=== PATIENT | male | born 1955 | race Caucasian/White ===

== ENCOUNTER 2018-12-27 07:17 | Emergency (ER) | payer SELFPAY ==
--- NOTE | 2018-12-27 08:34 | ER Document Report ---
ED General - General Chief Complaint: Chest Pain Stated Complaint: DIFFICULTY BREATHING Time Seen by Provider: 12/27/18 08:27 TRAVEL OUTSIDE OF THE [place] IN LAST 30 DAYS: No - HPI Patient complains to provider of: RUQ pain increased with inspiration Notes: She presents with approximate 1 day history of increasing right upper quadrant/pain 8/10 sharp in nature made worse with deep inspiration. Nothing makes the pain better. Patient has never felt like this before. Patient denies any history of abdominal surgery. Patient denies fever chills. Patient has not been eating much secondary to the pain. Patient denies any history of cardiac disease. Pain is located in the delineations between his thorax and his abdomen. His pain radiates to his right lower quadrant as well - Related Data Allergies/Adverse Reactions: No Known Allergies Allergy (Verified 12/27/18 07:21) Past Medical History - Social History Smoking Status: Current Every Day Smoker Family History: Reviewed & Not Pertinent - Immunizations Immunizations up to date: Yes Hx Diphtheria, Pertussis, Tetanus Vaccination: Yes Review of Systems - Review of Systems Notes: REVIEW OF SYSTEMS: CONSTITUTIONAL: -fevers, -chills EENT: -eye pain, -difficulty swallowing, -nasal congestion CARDIOVASCULAR: -chest pain, -syncope. RESPIRATORY: -cough, positive SOB GASTROINTESTINAL: Positive abdominal pain, -nausea, -vomiting, -diarrhea GENITOURINARY: -dysuria, -hematuria MUSCULOSKELETAL: -back pain, -neck pain SKIN: -rash or skin lesions. HEMATOLOGIC: -easy bruising or bleeding. LYMPHATIC: -swollen, enlarged glands. NEUROLOGICAL: -altered mental status or loss of consciousness, -headache, - neurologic symptoms PSYCHIATRIC: -anxiety, -depression. ALL OTHER SYSTEMS REVIEWED AND NEGATIVE. Physical Exam - Vital signs Vitals: Temp Pulse Resp BP Pulse Ox 97.8 F 62 18 168/82 H 96 12/27/18 07:31 12/27/18 07:31 12/27/18 07:31 12/27/18 07:31 12/27/18 07:31 - Notes Notes: PHYSICAL EXAMINATION: GENERAL: Well-appearing, well-nourished and in moderate acute distress. HEAD: Atraumatic, normocephalic. EYES: Pupils equal round and reactive to light, extraocular movements intact, sclera anicteric, conjunctiva are normal. ENT: nares patent, oropharynx clear without exudates. Moist mucous membranes. NECK: Normal range of motion, supple without lymphadenopathy LUNGS: Breath sounds clear to auscultation bilaterally and equal. No wheezes rales or rhonchi. Pain with inspiration HEART: Regular rate and rhythm without murmurs ABDOMEN: Tender right upper quadrant and right lower quadrant, no rebound or guarding EXTREMITIES: Normal range of motion, no pitting or edema. No cyanosis. NEUROLOGICAL: Cranial nerves grossly intact. Normal speech, normal gait. Normal sensory and motor exams. PSYCH: Normal mood, normal affect. SKIN: Warm, Dry, normal turgor, no rashes or lesions noted. Course - Re-evaluation Re-evalutation: 12/27/18 08:35 63-year-old male presents with approximately 1 day history of pain on the right side of his body. Made worse with deep inspiration. Painful in his right upper quadrant right lower quadrant. This pain is at the delineation zone between possible pulmonary embolus is, gallbladder. With the radiation could be appendix to the leg against the retroperitoneum. Will order extensive lab work- up and CAT scan imaging. 12/27/18 10:[address] chest abdomen pelvis showed no acute process, negative for pulmonary embolus, no appendicitis, normal gallbladder. Some perihilar lymphadenopathy of unknown etiology. Patient's extensive lab work-up shows no leukocytosis, normal troponin other biomarkers. Patient does have elevation in liver enzymes of the possible hepatitis. Discussed case with patient. Patient states he has to go to work he cannot stay in the department any longer. Will send acute hepatitis panel. Patient not willing to stay for ultrasound right quadrant. Patient be discharged home with some oral analgesia follow-up PCP. - Vital Signs Vital signs: Temp Pulse Resp BP Pulse Ox 97.8 F 62 18 168/82 H 96 12/27/18 07:31 12/27/18 07:31 12/27/18 07:31 12/27/18 07:31 12/27/18 07:31 - Laboratory Result Diagrams: 12/27/18 08:35 12/27/18 08:35 Laboratory results interpreted by me: 12/27/18 12/27/18 08:35 08:35 Hgb 17.5 H AST 114 H ALT 158 H - EKG Interpretation by Ri EKG shows normal: Sinus rhythm Rate: Normal Rhythm: NSR Discharge - Discharge Clinical Impression: Transaminitis Condition: Stable Disposition: HOME, SELF-CARE Instructions: Hepatitis ([facility]) Prescriptions: Oxycodone HCl [Oxycontin Ir 5 Mg Tablet] 1 - 2 mg PO Q4H PRN #15 tablet PRN Reason: For Pain Referrals: [facility] [Provider Group] - Follow up as needed
[2018-12-27 08:47] LABS: ABSOLUTE EOSINOPHILS # (AUTO) 0.1 10^3/uL (0.0-0.6); ABSOLUTE NEUT (AUTO) 6.3 10^3/uL (1.7-8.2); BASOPHILS % (AUTO) 0.4 % (0-2); EOSINOPHILS % (AUTO) 1.3 % (0-6); HEMATOCRIT 50.7 % (37.9-51.0); HEMOGLOBIN 17.5 g/dL (13.5-17.0); MEAN CORPUSCULAR HEMOGLOBIN 33.3 pg (27.0-33.4); MEAN CORPUSCULAR HGB CONC 34.6 g/dL (32.0-36.0); MEAN CORPUSCULAR VOLUME 97 fl (80-97); MONOCYTES % (AUTO) 10.8 % (3-13); PLATELET COUNT 162 10^3/uL (150-450); RED BLOOD COUNT 5.25 10^6/uL (4.35-5.55); RED CELL DISTRIBUTION WIDTH 12.6 % (11.5-14.0); SEGMENTED NEUTROPHILS % (AUTO) 66.5 % (42-78); TOTAL CELLS COUNTED % (AUTO) 100 %; WHITE BLOOD COUNT 9.5 10^3/uL (4.0-10.5)
[2018-12-27 09:04] LABS: ALANINE AMINOTRANSFERASE 158 U/L (21-72); ALBUMIN 4.1 g/dL (3.5-5.0); ALKALINE PHOSPHATASE 124 U/L (38-126); ANION GAP 7 (5-19); ASPARTATE AMINO TRANSFERASE 114 U/L (17-59); BILIRUBIN,DIRECT 0.3 mg/dL (0.0-0.4); BILIRUBIN,TOTAL 0.8 mg/dL (0.2-1.3); BLOOD UREA NITROGEN 13 mg/dL (7-20); CARBON DIOXIDE 29 mmol/L (22-30); CHLORIDE 104 mmol/L (98-107); GLUCOSE 101 mg/dL (75-110); LIPASE 137.2 U/L (23-300); POTASSIUM 4.6 mmol/L (3.6-5.0); SODIUM 139.9 mmol/L (137-145)
[2018-12-27] MEDS ORDERED: MORPHINE SULFATE 10 MG/ML INJ IV ONE (09:09)
[2018-12-27 09:16] LABS: NT PRO BNP 121 pg/mL (5-900)
[2018-12-27 09:24] LABS: TROPONIN I < 0.012 ng/mL
--- NOTE | 2018-12-27 10:12 | RADIOLOGY REPORT (SQ) ---
EXAM DESCRIPTION: CTA CHEST; CT ABD/PELVIS WITH IV ONLY COMPLETED DATE/TIME: 12/27/2018 9:44 am REASON FOR STUDY: PE? RUQ pain with inspiration; RUQ pain with RLQ pain..appy? GB?? COMPARISON: None. CONTRAST TYPE AND DOSE: contrast/concentration: Isovue 350.00 mg/ml; Total Contrast Delivered: 80.0 ml; Total Saline Delivered: 90.0 ml RENAL FUNCTION: Creatinine 0.62 TECHNIQUE: CT ANGIO of the chest performed using helical scanning technique with dynamic intravenou s contrast injection. Images reviewed with lung, soft tissue and bone windows. Reconstructed coronal and sagittal MPR images reviewed. Additional 3 dimensional post-processing performed to develop Max imal Intensity Projection images (MIP) of the thoracic aorta and pulmonary arteries. All images stor ed on PACS. CT scan of the abdomen and pelvis performed with intravenous and oral contrast using helical scanning technique with dynamic intravenous contrast injection. Images reviewed with lung, soft tissue and b one windows. Reconstructed coronal and sagittal MPR images reviewed. Delayed images for evaluation of the urinary system also acquired and evaluated. All images stored on PACS. All CT scanners at this facility use dose modulation, iterative reconstruction, and/or weight based d osing when appropriate to reduce radiation dose to as low as reasonably achievable (ALARA). [facility]: Dose Right [facility]: CareDose [facility]: Dose Right [facility]: Teradose 4D [facility]: [employer] RADIATION DOSE: CT Rad equipment meets quality standard of care and radiation dose reduction techniq ues were employed. CTDIvol: 10.5 - 19.8 mGy. DLP: 1779 mGy-cm. . LIMITATIONS: None. FINDINGS: CHEST CT ANGIO: AXILLAE: No adenopathy. CHEST WALL: Unremarkable LUNGS and PLEURA: Bibasilar airspace disease in the posterior costophrenic sulci. Airspace disease i n the right middle lobe just above the hemidiaphragm, likely atelectasis. Pneumonia could not be exc luded. No pleural effusions. THYROID: No masses or significant asymmetry. HILAR AND MEDIASTINAL STRUCTURES: 1.4 x 0.7 cm and 1.7 x 0.8 cm prevascular lymph nodes are present o f uncertain clinical significance Small hiatal hernia AORTA AND GREAT VESSELS: No aneurysm. No dissection. PULMONARY ARTERIES: No pulmonary emboli. HEART: No pericardial effusion. There is a calcified aortic valve. HARDWARE AND LIFELINES: None. BONES: No significant finding. OTHER: No other significant finding. CT ABDOMEN AND PELVIS with IV contrast: LIVER: Normal size. No masses. No dilated ducts. SPLEEN: Normal size. No focal lesions. PANCREAS: No masses. No significant calcifications. No adjacent inflammation or peripancreatic flui d collections. Pancreatic duct not dilated. GALLBLADDER: No identified stones by CT criteria. No inflammatory changes to suggest cholecystitis. ADRENAL GLANDS: No significant masses or asymmetry. RIGHT KIDNEY AND URETER: No solid masses. No significant calcifications. No hydronephrosis or hyd roureter. LEFT KIDNEY AND URETER: No solid masses. No significant calcifications. No hydronephrosis or hydr oureter. AORTA AND VESSELS: No aneurysm. No dissection. Visceral artery origin vascular calcifications presen t without high-grade stenosis. About 50% stenosis bilateral proximal renal arteries. RETROPERITONEUM: No retroperitoneal hemorrhage or masses. 1.7 x 1.1 cm celiac node axial image 111, of uncertain clinical significance LARGE AND SMALL BOWEL: No dilatation. No masses. No wall thickening. There are sigmoid colon diver ticuli without CT signs of acute diverticulitis. No bowel obstruction. APPENDIX: Normal. ABDOMINAL WALL: No hernia or masses. PERITONEAL CAVITY: No free air. No free fluid. No peritoneal implants or masses. PELVIS: No mass or free fluid. Normal bladder. BONES: No significant or acute findings. OTHER: No other significant finding. IMPRESSION: Bibasilar airspace disease atelectasis versus pneumonia No CT angio evidence of acute pulmonary emboli or thoracic aortic dissection. No acute findings in the abdomen or pelvis Colonic diverticulosis without CT signs of acute diverticulitis. TECHNICAL DOCUMENTATION: JOB ID: [id number] Quality ID # [id number]: Final reports with documentation of one or more dose reduction techniques (e.g., Au tomated exposure control, adjustment of the mA and/or kV according to patient size, use of iterative reconstruction technique) 2010 [employer]- All Rights Reserved Reading location - IP/workstation name: [email or web address]
[2018-12-27 11:09] VITALS: BP 178/89
--- NOTE | 2018-12-27 16:43 | EKG REPORT ---
SEVERITY:- ABNORMAL ECG - SINUS RHYTHM ABNRM R PROG, CONSIDER ASMI OR LEAD PLACEMENT : Confirmed by: Bib Martinez MD 27-Dec-2018 16:41:59
[2018-12-28 08:43] LABS: HEPATITIS A AB IGM Negative (Negative); HEPATITIS B CORE AB IGM Negative (Negative); HEPATITS B SURFACE ANTIGEN Negative (Negative)
[2018-12-28 09:07] LABS: HEPATITIS C VIRUS ANTIBODY >11.0 s/co ratio (0.0-0.9); HEPATITS B SURFACE ANTIGEN Negative (Negative)
== END 2018-12-27 11:08 | disposition home or self-care (01) ==
LOC: ER 07:17
DX: R74.0 Nonspecific elevation of levels of transaminase and lactic acid dehydrogenase [LDH] (principal); R07.9 Chest pain, unspecified; R10.11 Right upper quadrant pain; R10.31 Right lower quadrant pain; F17.200 Nicotine dependence, unspecified, uncomplicated
CPT/HCPCS: 93005; 99284; 87517; 87521; 36415; 83605; 83690; 85025; 80053; 84484; 87340; 80074; 83880; 71275; 74177; 93010; J2270